=== PATIENT | female | born 1965 | race Hispanic/Latino ===

== ENCOUNTER 2020-05-19 19:26 | Emergency (ER) | payer SELFPAY ==
[2020-05-19] MEDS ORDERED: ORPHENADRINE CITRATE 30 MG/ML ML ONE (21:20)
[2020-05-19] MEDS ORDERED: KETOROLAC TROMETHAMINE 30MG/ML ONE (21:20)
== END 2020-05-19 22:52 | disposition home or self-care (01) ==
LOC: EDH 19:26
DX: S86.912A Strain of unspecified muscle(s) and tendon(s) at lower leg level, left leg, initial encounter (principal); S39.011A Strain of muscle, fascia and tendon of abdomen, initial encounter; R07.89 Other chest pain; E11.9 Type 2 diabetes mellitus without complications; W01.0XXA Fall on same level from slipping, tripping and stumbling without subsequent striking against object, initial encounter; Y93.01 Activity, walking, marching and hiking; Y92.090 Kitchen in other non-institutional residence as the place of occurrence of the external cause; Y99.8 Other external cause status
CPT/HCPCS: 36415; 71101; 72100; 73562; 80048; 85025; 96374; 96375; 99284; J1885; J2360

== ENCOUNTER 2022-02-03 21:14 | Emergency (ER) | payer OTHER ==
[~2022-02-03] VITALS: Ht 154.9 cm; Wt 67.1 kg
[2022-02-03 22:28] LABS: BASOPHILS % (AUTO) 0.4 % (0.0-5.0); EOSINOPHILS % (AUTO) 1.2 % (0.0-8.0); HEMATOCRIT 37.4 % (36-48); LYMPHOCYTES % (AUTO) 30.6 % (21.0-51.0); MEAN CORPUSCULAR HEMOGLOBIN 28.8 pg (27.0-33.0); MEAN CORPUSCULAR HGB CONC 34.8 g/dL (32.0-36.0); MEAN CORPUSCULAR VOLUME 82.7 fL (79-99); MONOCYTES % (AUTO) 7.8 % (3.0-13.0); NEUTROPHILS % (AUTO) 59.7 % (40.0-77.0); PLATELET COUNT (AUTO) 273 K/uL (130-400); RED BLOOD CELL COUNT(AUTO) 4.52 MIL/uL (4.00-5.50); RED CELL DISTRIBUTION WIDTH 12.3 % (11.0-15.5); WHITE BLOOD COUNT (AUTO) 7.8 K/uL (4.8-10.8)
[2022-02-03 22:35] LABS: CREATININE 0.7 mg/dL (0.5-1.5); POTASSIUM 4.5 mmol/L (3.5-5.1)
[2022-02-03 23:39] VITALS: BP 122/76
[2022-02-04 00:12] LABS: ERYTHROCYTE SEDIMENTATION RATE 30 MM/HR (0-30)
== END 2022-02-03 23:39 | disposition left against medical advice (07) ==
LOC: EDH 21:14
DX: M79.604 Pain in right leg (principal); E11.9 Type 2 diabetes mellitus without complications; I10 Essential (primary) hypertension
CPT/HCPCS: 36415; 73590; 80048; 85025; 85651; 86140

== ENCOUNTER 2022-09-28 19:45 | Emergency (ER) | payer BC, OTHER ==
[~2022-09-28] VITALS: Ht 154.9 cm; Wt 71.2 kg
[2022-09-28] MEDS ORDERED: 0.9%NACL 1000ML 1,000 ML IV ONE (23:30)
[2022-09-28] MEDS ORDERED: KETOROLAC 30MG VIAL (30MG/ML) IV ONE (23:30)
[2022-09-28 23:37] LABS: BASOPHILS % (AUTO) 0.4 % (0.0-5.0); EOSINOPHILS % (AUTO) 1.5 % (0.0-8.0); HEMATOCRIT 38.9 % (36-48); LYMPHOCYTES % (AUTO) 33.8 % (21.0-51.0); MEAN CORPUSCULAR HEMOGLOBIN 28.3 pg (27.0-33.0); MONOCYTES % (AUTO) 9.7 % (3.0-13.0); NEUTROPHILS % (AUTO) 54.3 % (40.0-77.0); PLATELET COUNT (AUTO) 226 K/uL (130-400); RED CELL DISTRIBUTION WIDTH 12.8 % (11.0-15.5); WHITE BLOOD COUNT (AUTO) 6.8 K/uL (4.8-10.8)
[2022-09-28 23:47] LABS: CREATININE 0.6 mg/dL (0.5-1.5); POTASSIUM 3.5 mmol/L (3.5-5.1)
[2022-09-28 23:47] LABS: APPEARANCE,URINE CLEAR (CLEAR); BILIRUBIN,URINE NEGATIVE (NEGATIVE); COLOR,URINE LIGHT-YELLOW (YELLOW); GLUCOSE, URINE (UA) >=1000 mg/dL (NEGATIVE); KETONES,URINE NEGATIVE (NEGATIVE); LEUKOCYTE ESTERASE ,URINE 25 Leu/uL (NEGATIVE); NITRATE,URINE 2+ (NEGATIVE); OCCULT BLOOD,URINE NEGATIVE (NEGATIVE); PH,URINE 5.5 (5.0-8.0); PROTEIN,URINE NEGATIVE (NEGATIVE); UROBILINOGEN,URINE 0.2 mg/dL (0.2-1.0)
[2022-09-28 23:48] LABS: BACTERIA,URINE MOD /HPF (None Seen); MUCUS,URINE RARE LPF (None Seen); SQUAMOUS EPITHELIAL CELL,UR RARE /HPF (0-2)
[2022-09-28 23:52] LABS: ALBUMIN 3.5 g/dL (3.5-5.0); TOTAL PROTEIN, SERUM 7.8 g/dL (6.0-8.3)
[2022-09-29] MEDS ORDERED: ZOSYN 3.375GM +NS 50ML IV STA (01:10)
[2022-09-29] MEDS ORDERED: DICL35CA3 PO (01:26)
[2022-09-29] MEDS ORDERED: AMOX1TAB16 PO (01:26)
[2022-09-29 02:23] VITALS: BP 144/78
== END 2022-09-29 02:24 | disposition home or self-care (01) ==
LOC: EDH 19:45
DX: N61.0 Mastitis without abscess (principal); N39.0 Urinary tract infection, site not specified; E11.9 Type 2 diabetes mellitus without complications; I10 Essential (primary) hypertension; Z98.890 Other specified postprocedural states
CPT/HCPCS: 99284; 96361; 96375; 82550; 80053; 85025; 87077; 87088; 87186; 81001; 36415; 96365; J7030; J1885; J2543